=== PATIENT | female | born 2000 | race Caucasian/White ===

== ENCOUNTER 2020-04-29 15:56 | Emergency (ER) | payer BC ==
--- NOTE | 2020-04-29 16:10 | EDM.PDOC ---
ED HPI GENERAL MEDICAL PROBLEM - General Chief Complaint: Bite:Animal, Insect Stated Complaint: DOG BITE RT HAND Time Seen by Provider: 04/29/20 15:59 Source of Information: Reports: Patient History Limitations: Reports: No Limitations - History of Present Illness INITIAL COMMENTS - FREE TEXT/NARRATIVE: HISTORY AND PHYSICAL: History of present illness: Patient is a 19-year-old female who presents to the emergency room with complaints of a dog bite of her right hand. She states she was walking along a fence towards a barking dog when she reached her hand near the animal and he bit down on her right webspace between the first and second digits. She states her tetanus was last updated 2 years ago. She is unsure if the dog has been vaccinated. She is here from [place] visiting her boyfriend. She denies any numbness, tingling, weakness of the affected extremity. Positive CMS. Offers no systemic complaints. Review of systems: As per history of present illness and below otherwise all systems reviewed and negative. Past medical history: As per history of present illness and as reviewed below otherwise noncontributory. Surgical history: As per history of present illness and as reviewed below otherwise noncontributory. Social history: See social history for further information Family history: As per history of present illness and as reviewed below otherwise noncontributory. Physical exam: General: Well-developed and well-nourished 19-year-old female. Alert and oriented. Nontoxic-appearing and in no acute distress. HEENT: Atraumatic, normocephalic, pupils equal and reactive bilaterally, negative for conjunctival pallor or scleral icterus, mucous membranes moist, trachea midline. No drooling or trismus noted. No meningeal signs. No hot potato voice noted. Lungs: Clear to auscultation, breath sounds equal bilaterally, chest nontender. Heart: S1S2, regular rate and rhythm without overt murmur Abdomen: Soft, nondistended, nontender. Skin: Puncture site between webspace of first and second digit on right hand. Moderate soft tissue swelling below the MIP joint of second digit with early bruising and redness. Otherwise remaining skin is intact, warm, dry. No lesions or rashes noted. Extremities: Atraumatic, moves all extremities per self without difficulty or deficits, negative for cords or calf pain. Neurovascular unremarkable. Neuro: Awake, alert, oriented. Cranial nerves II through XII unremarkable. Cerebellum unremarkable. Motor and sensory unremarkable throughout. Exam nonfocal. Notes: Local PD was consulted on this case. Was thoroughly cleansed and irrigated with wound wash and chlorhexidine. X-ray shows soft tissue air. No bony abnormalities are noted. No radiopaque foreign body is seen. PD was unable to get ahold of the dog's fiber optic assembler, unable to confirm if vaccines are up-to-date. I did discuss the rabies series with the patient. At this time she would like to return home with the boyfriend to see if they can get a hold of their neighbor to see if the dog is up-to-date. She states she will contact me within the next 1 to 2 hours and will return if she does desire the rabies vaccine. We did discuss in great length the need for close follow-up with the hand surgeon. I did contact Dr. Galvez at [facility] in [place]. He is agreeable to seeing this patient on Saturday at 9 AM. Signs and symptoms that would prompt the patient to return to the emergency room or seek medical attention before then was reviewed in great length. Medication, follow up and supportive care measures were reviewed and discussed. Voices understanding and is agreeable to plan of care. Denies any further questions or concerns at this time. Diagnostics: Hand x-ray Therapeutics: Tdap, wound care, bacitracin Prescription: Augmentin Impression: Dog bite to right hand Plan: 1. Keep the area clean and dry. Gently wash the area with mild soap and water at least twice daily. Continue to monitor for signs of infection. Take the antibiotic as prescribed. 2. Tylenol and/or ibuprofen as needed for pain management. Tramadol for moderate to severe pain. This medication may cause drowsiness so do not take it while driving or needing to be functioning outside of the house. 3. Please follow-up with Dr Galvez, the hand surgeon in [place]. He will see you in his office on Saturday (05/03/20) at 9am. I would call his office on Saturday to give them your health information and confirm your appointment time. 4. Return to the ED as needed and as discussed. Definitive disposition and diagnosis as appropriate pending reevaluation and review of above. right hand Pain Score (Numeric/FACES): 5 - Related Data Allergies Allergy/AdvReac Type Severity Reaction Status Date / Time No Known Allergies Allergy Verified 04/29/20 16:08 Home Meds: Home Meds Amoxicillin/Clavulanate K [Augmentin 875-125 MG] 1 tab PO BID 7 Days #14 tablet 04/29/20 [Rx] traMADol [Ultram] 50 mg PO Q4H PRN #15 tab 04/29/20 [Rx] ED ROS GENERAL - Review of Systems Review Of Systems: Comprehensive ROS is negative, except as noted in HPI. ED EXAM, ANIMAL BITE - Physical Exam Exam: See Below (See dictation) Course - Vital Signs Last Recorded V/S: Last Vital Signs Temp 97.1 F 04/29/20 16:08 Pulse 78 04/29/20 16:08 Resp 16 04/29/20 16:08 BP 138/77 04/29/20 16:08 Pulse Ox 96 04/29/20 16:08 - Orders/Labs/Meds Orders: Active Orders 24 hr Category Date Time Status Communication Order [RC] STAT Care 04/29/20 16:13 Active Vaccines to be Administered [RC] PER UNIT ROUTINE Care 04/29/20 16:14 Active Meds: Medications Discontinued Medications Generic Name Dose Route Start Last Admin Trade Name Freq PRN Reason Stop Dose Admin Bacitracin 1 dose 04/29/20 16:14 04/29/20 16:35 Bacitracin Oint 1 Gm TOP 04/29/20 16:15 1 dose ONETIME ONE Administration Diphtheria/Tetanus/Acell Pertussis 0.5 ml 04/29/20 16:14 04/29/20 16:37 Adacel IM 04/29/20 16:15 Not Given .ONCE ONE Departure - Departure Time of Disposition: 16:58 Disposition: Home, Self-Care 01 Clinical Impression: Dog bite Qualifiers: Encounter type: initial encounter Qualified Code(s): W54.0XXA - Bitten by dog, initial encounter - Discharge Information Prescriptions: Amoxicillin/Clavulanate K [Augmentin 875-125 MG] 1 tab PO BID 7 Days #14 tablet traMADol [Ultram] 50 mg PO Q4H PRN #15 tab PRN Reason: Pain Instructions: Animal Bite, Adult, [id number] Referrals: Octavio Galvez [Ordering Only Provider] - PCP,None [Primary Care Provider] - Forms: ED Department Discharge Additional Instructions: The following information is given to patients seen in the emergency department who are being discharged to home. This information is to outline your options for follow-up care. We provide all patients seen in our emergency department with a follow-up referral. The need for follow-up, as well as the timing and circumstances, are variable depending upon the specifics of your emergency department visit. If you don't have a primary care physician on staff, we will provide you with a referral. We always advise you to contact your personal physician following an emergency department visit to inform them of the circumstance of the visit and for follow-up with them and/or the need for any referrals to a consulting specialist. The emergency department will also refer you to a specialist when appropriate. This referral assures that you have the opportunity for follow-up care with a specialist. All of these measure are taken in an effort to provide you with optimal care, which includes your follow-up. Under all circumstances we always encourage you to contact your private physician who remains a resource for coordinating your care. When calling for follow-up care, please make the office aware that this follow-up is from your recent emergency room visit. If for any reason you are refused follow-up, please contact the [facility] Emergency Department at and asked to speak to the emergency department charge nurse. Dr. Galvez & Dr. Villalobos [address] [place] [address] Thank you for choosing the [facility] emergency department in [place] for your medical needs today. It was a pleasure caring for you. You were seen in the emergency department for dog bite. 1. Keep the area clean and dry. Gently wash the area with mild soap and water at least twice daily. Continue to monitor for signs of infection. Take the antibiotic as prescribed. 2. Tylenol and/or ibuprofen as needed for pain management. Tramadol for moderate to severe pain. This medication may cause drowsiness so do not take it while driving or needing to be functioning outside of the house. 3. Please follow-up with Dr Galvez, the hand surgeon in [place]. He will see you in his office on Saturday (05/03/20) at 9am. I would call his office on Saturday to give them your health information and confirm your appointment time. 4. Return to the ED as needed and as discussed. Sepsis Event Note (ED) - Focused Exam Vital Signs: Vital Signs Temp Pulse Resp BP Pulse Ox 04/29/20 16:08 97.1 F 78 16 138/77 96 - My Orders Last 24 Hours: My Active Orders 04/29/20 16:13 Communication Order [RC] STAT 04/29/20 16:14 Vaccines to be Administered [RC] PER UNIT ROUTINE - Assessment/Plan Last 24 Hours: My Active Orders 04/29/20 16:13 Communication Order [RC] STAT 04/29/20 16:14 Vaccines to be Administered [RC] PER UNIT ROUTINE
[2020-04-29] MEDS ORDERED: Bacitracin Oint 1 GM U/D Packet TOP ONE (16:14)
[2020-04-29] MEDS ORDERED: Diphtheria,Pertussis(Acell),Tetanus Vaccine 0.5 ML Syringe IM ONE (16:14)
--- NOTE | 2020-04-29 16:43 | CR ---
Right hand: 4 views of the right hand were obtained. Comparison: No previous study. Soft tissue air is noted within the hand extending into the left 3rd finger. No radiopaque foreign object is appreciated. On the lateral view there is an opacity being seen anterior to the 2nd metacarpal presumably due to artifact. No discrete fracture or other bony abnormality is appreciated. Impression: 1. Soft tissue air. 2. On the lateral view opacity seen anterior to the 2nd metacarpal presumably artifact. Please correlate. 3. No acute bony abnormality is seen. No radiopaque foreign object is seen. Diagnostic code #2 This report was dictated in MDT
== END 2020-04-29 17:17 | disposition home or self-care (01) ==
LOC: MW.ED 15:56
DX: S61.451A Open bite of right hand, initial encounter (principal); W54.0XXA Bitten by dog, initial encounter
CPT/HCPCS: 73130-26-RT; 73130-RT; 99283; 99283-25